=== PATIENT | male | born 1990 | race African-American/Black ===

== ENCOUNTER 2017-12-26 18:48 | Emergency (ER) | payer SELFPAY ==
[~2017-12-26] VITALS: Ht 185.4 cm; Wt 71.0 kg
[2017-12-26] MEDS ORDERED: SODIUM CHLORIDE 0.9% 1,000 ML IV ONE (19:35)
[2017-12-26] MEDS ORDERED: IBUPROFEN 600MG TABLET PO STA (19:35)
[2017-12-26 20:51] LABS: BASOPHILS % 0.5 % (0.0-2.0); EOSINOPHILS % 1.8 % (0.0-5.0); HEMATOCRIT. 42.4 % (42.0-52.0); HEMOGLOBIN. 14.8 g/dL (14.0-18.0); LYMPHOCYTES % 40.9 % (20.0-50.0); MEAN CORPUSCULAR HEMOGLOBIN 32.3 pg (28.0-32.0); MEAN CORPUSCULAR VOLUME 92.7 fL (80.0-94.0); MEAN PLATELET VOLUME 9.9 fl (7.4-10.4); MONOCYTES % 12.4 % (2.0-8.0); NEUTROPHILS % 44.4 % (40.0-76.0); PLATELET 192 x1000/uL (130-400); RED BLOOD CELL COUNT 4.58 mill/uL (4.7-6.1)
[2017-12-26 20:56] LABS: CHLORIDE 106 mEq/L (98-107)
[2017-12-26 21:03] LABS: ETHANOL BLOOD < 10 mg/dL
[2017-12-26] MEDS ORDERED: KCL 10MEQ/50ML PREMIX 50 ML IV ONE (21:45)
[2017-12-26] MEDS ORDERED: POTASSIUM CHLORIDE 20MEQ TABLET SR PO ONE (21:45)
[2017-12-26 23:11] VITALS: BP 121/71
== END 2017-12-26 23:11 | disposition home or self-care (01) ==
LOC: ER 18:48
DX: R07.89 Other chest pain (principal); I51.9 Heart disease, unspecified; Z87.891 Personal history of nicotine dependence
CPT/HCPCS: 36415; 71045; 80053; 84484; 85025; 93005; 99285; G0482; J3480; J7030

== ENCOUNTER 2021-07-22 20:44 | Emergency (ER) | payer OTHER ==
[~2021-07-22] VITALS: Ht 188 cm; Wt 111.0 kg
[2021-07-22] MEDS ORDERED: IBUPROFEN 800MG TABLET PO ONE (22:00)
[2021-07-22] MEDS ORDERED: HYDROCODONE/ACETAMINOPHEN 10/325MG TABLET PO NR (23:00)
[2021-07-22] MEDS ORDERED: IBUP-2029 MT (23:08)
[2021-07-22] MEDS ORDERED: HYDR-4001 MT (23:08)
[2021-07-23] VITALS: BP 127/69
== END 2021-07-23 | disposition home or self-care (01) ==
LOC: ER 20:44
DX: S62.91XA Unspecified fracture of right hand, initial encounter for closed fracture (principal); X58.XXXA Exposure to other specified factors, initial encounter; Y93.89 Activity, other specified; Y92.89 Other specified places as the place of occurrence of the external cause; Y99.8 Other external cause status; I25.2 Old myocardial infarction
CPT/HCPCS: 26750; 73130; 99284